=== PATIENT | female | born 1970 | race Caucasian/White ===

== ENCOUNTER 2016-12-23 22:41 | Emergency (ER) | payer BC, OTHER ==
[~2016-12-23] VITALS: Ht 167.6 cm; Wt 117.9 kg
[2016-12-24 04:21] VITALS: BP 114/73
[2016-12-24] MEDS ORDERED: ALPRAZolam 0.5 MG TAB PO ONE (05:15)
[2016-12-24] MEDS ORDERED: BACITRACIN TOP OINT 1 UD PKG TOP ONE (05:30)
[2016-12-24] MEDS ORDERED: TETANUS-DIPTH-ACEL PERTUSSIS 0.5ML SYRG IM ONE (06:15)
== END 2016-12-24 06:27 | disposition home or self-care (01) ==
LOC: EDBD 22:41 → ER 22:41
DX: S61.216A Laceration without foreign body of right little finger without damage to nail, initial encounter (principal); S61.512A Laceration without foreign body of left wrist, initial encounter; Z23 Encounter for immunization; Y08.89XA Assault by other specified means, initial encounter; Y93.89 Activity, other specified; Y99.8 Other external cause status; Y92.89 Other specified places as the place of occurrence of the external cause
CPT/HCPCS: 12002; 90471; 90715